=== PATIENT | female | born 1965 | race Caucasian/White ===

== ENCOUNTER 2021-10-23 15:31 | Outpatient (CLI) | payer BC, MEDICAID, SELFPAY ==
[2021-10-23 16:50] LABS: Anion Gap 8 mmol/L (8-16); Blood Urea Nitrogen 22 mg/dL (7-17); Calcium 9.3 mg/dL (8.4-10.2); Carbon Dioxide 25 mmol/L (22-30); Chloride 104 mmol/L (98-107); Estimated Glomerular Filt Rate > 60; Glucose 246 mg/dL (65-110); HDL Direct 38 mg/dL; Potassium 4.7 mmol/L (3.4-5.0); Sodium 137 mmol/L (137-145)
[2021-10-23 17:00] LABS: LDL Cholesterol Direct 115 mg/dL
[2021-10-23 17:10] LABS: Free T4 Free Thyroxine 1.08 ng/mL (0.78-2.19); Vitamin D 25 Hydroxy 31.7 ng/mL
[2021-10-23 17:12] LABS: Creatinine Urine 90.6 mg/dL
[2021-10-23 17:16] LABS: MALB Creatinine Ratio 82.8 mg/g (0-30)
== END 2021-10-23 15:32 | disposition home or self-care (01) ==
LOC: ANHWCLAB 15:35
PROVIDERS: PCP Family Medicine; Visit Provider Internal Medicine Endocrinology, Diabetes & Metabolism
DX: E11.65 Type 2 diabetes mellitus with hyperglycemia (principal); Z51.81 Encounter for therapeutic drug level monitoring; Z79.4 Long term (current) use of insulin; R79.89 Other specified abnormal findings of blood chemistry; E78.5 Hyperlipidemia, unspecified; E03.9 Hypothyroidism, unspecified
CPT/HCPCS: 36415; 80048; 82043; 82306; 82607; 83718; 83721; 84439; 84443

== ENCOUNTER 2023-12-28 15:00 | Outpatient (CLI) | payer OTHER, MEDICAID, SELFPAY ==
--- NOTE | ~2023-12-28 | XR_ITS ---
EXAM: XR wrist RT min 3V DATE: 12/28/2023 15:13 HISTORY: Pain in R wrist after fall yesterday redness/swelling post. . COMPARISON: None available. FINDINGS: Decreased mineralization. No fracture or dislocation. No lytic or blastic lesion. Mild sca ttered degenerative changes. No erosion or periosteal change. Soft tissues within normal limits. IMPRESSION: No acute osseous finding in the right wrist. Reviewed, dictated and finalized at location K.
== END 2023-12-28 15:01 | disposition home or self-care (01) ==
PROVIDERS: PCP Family Medicine; Visit Provider Internal Medicine Endocrinology, Diabetes & Metabolism
DX: M25.539 Pain in unspecified wrist (principal)
CPT/HCPCS: 73110

== ENCOUNTER 2024-04-16 16:42 | Emergency (ER) | payer OTHER, SELFPAY ==
--- NOTE | ~2024-04-16 | XR_ITS ---
XR foot RT min 3V DATE: 04/16/2024 17:12 INDICATION: Pain TECHNIQUE: 4 views COMPARISON: None FINDINGS: There is a nondisplaced linear oblique intra-articular fracture of the base of the fifth me tatarsal bone. Prominent posterior calcaneal enthesopathy. Very slight plantar calcaneal enthesopathy. No other fracture or dislocation, periosteal reaction or bone destruction. IMPRESSION: Nondisplaced linear oblique intra-articular fracture of the base of the fifth metatarsal bone Reviewed, dictated and finalized at location J.
--- NOTE | 2024-04-16 16:49 | ED.EXTPRO ---
HPI - Extremity Problem General Chief complaint: Extremity Problem,Nontraumatic Stated complaint: rt foot injury Time Seen by Provider: 04/16/24 17:15 Source: patient and RN notes reviewed Mode of arrival: ambulatory Limitations: no limitations History of Present Illness HPI Narrative: 59-year-old female presents with concern for right foot pain. Reports prior to arrival she fell down 2 steps landing on concrete. Reports her foot rolled and she felt a crack. She reports lateral foot swelling, bruising, pain. She reports pain at rest, worsening pain with weight-bearing. She denies decreased sensation, strength, range of motion MD Complaint: extremity pain Related Data Allergies Allergy/AdvReac Type Severity Reaction Status Date / Time No Known Allergies Allergy Verified 04/16/24 16:54 Review of Systems Review of Systems: CONSTITUTIONAL: Denies malaise, chills, sweats, or fever. SKIN: Denies rash or itching, open skin, laceration, abrasion, redness, warmth, swelling. MUSCULOSKELETAL: Reports right foot pain bruising, and swelling NEUROLOGIC: Denies numbness, weakness All systems reviewed & are unremarkable except as noted in HPI and below PMFSH Past Medical History Medical History Abnormal mammogram of both breasts Angiomyolipoma of right kidney Anxiety and depression Aortic atherosclerosis Arthralgia of right elbow Body mass index (BMI) greater than 30 (06/15/17) Essential (primary) hypertension Herpes zoster Hypothyroidism, unspecified Mixed hyperlipidemia Nodule of skin of both hands Onychomycosis of toenail Polyarthralgia Positive DORIS (antinuclear antibody) Sjogrens syndrome Sliding hiatal hernia Tendinitis of right rotator cuff Tinnitus Type 2 diabetes mellitus with hyperglycemia Vitamin D deficiency, unspecified Family History Family History Father Hypertension Cerebrovascular accident Family history of diabetes mellitus in first degree relative Family history of coronary artery disease Sibling Hypertension Mother Hypertension Other Diabetes mellitus Family history of cardiovascular disease Social History Social History Smoking packs per day: 1 Smoking cigarettes per day: 20.0 Years smoked: 40 Smoking pack-years: 40.00 Smoking status: Current some day smoker Second hand tobacco smoke exposure: Yes Alcohol intake: current Substance use: never Substance use type: does not use Lack of Transportation: No Lack of Food: Never True Current Housing: I Have Housing Concerned About Future Housing: No Difficulty Paying Gas/Electric Bills: No Difficulty Paying for Meds: No Currently Unemployed: No Education: High School Diploma/GED Difficulty w/ Childcare or Family Care: No Living arrangements: with family Occupation/Education: occupation 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 There is no relevant family history pertinent to the presenting complaint Exam Narrative: GENERAL: Well-appearing, well-nourished, and in no acute distress. HEAD: Normocephalic, atraumatic. EYES: PERRLA, conjunctivae clear NECK: Supple. CHEST: Speaks in full sentences. No respiratory distress. HEART: Regular rate and rhythm. Normal and equal peripheral pulses. EXTREMITIES: Right foot, digits have grossly normal strength and sensation, normal range of motion. Mild lateral edema and ecchymosis. Normal sensation with sensitivity to light touch and pain. Lateral tenderness. No open wounds, no skin tenting, no devitalized tissue or atrophy, no trophic changes, no obvious deformity, alignment normal, nearby joints an
[2024-04-16 16:53] VITALS: BP 124/59; PULSE 116; RESP 18; TEMP 36.8; O2SAT 98
[2024-04-16 16:55] VITALS: BP 124/59; PULSE 116; RESP 18; TEMP 36.8; O2SAT 98
== END 2024-04-16 17:55 | disposition home or self-care (01) ==
PROVIDERS: Emergency Provider Nurse Practitioner; PCP Family Medicine
DX: S92.354A Nondisplaced fracture of fifth metatarsal bone, right foot, initial encounter for closed fracture (principal); W10.9XXA Fall (on) (from) unspecified stairs and steps, initial encounter; I70.0 Atherosclerosis of aorta; I10 Essential (primary) hypertension; E03.9 Hypothyroidism, unspecified; E78.2 Mixed hyperlipidemia; M35.00 Sjogren syndrome, unspecified; E11.9 Type 2 diabetes mellitus without complications; F17.210 Nicotine dependence, cigarettes, uncomplicated
CPT/HCPCS: 73630; 99214; G0463